=== PATIENT | female | born 1975 | race Caucasian/White ===

== ENCOUNTER 2020-06-07 11:27 | Emergency (ER) | payer OTHER, SELFPAY ==
--- NOTE | ~2020-06-07 | US_ITS ---
EXAMINATION: US RETROPERITONEAL LIMITED (RENAL ONLY) CLINICAL INFORMATION: Back pain. COMPARISON: None TECHNIQUE: Grayscale and color imaging of the kidneys FINDINGS: RIGHT KIDNEY: 8.8 x 3.4 x 4.5 cm (SAG x AP x TRV). The kidney is normal in size, contour, and echogenicity. Renal cortical thickness is normal. No calculi or focal parenchymal lesions. No hydronephrosis. LEFT KIDNEY: 10.6 x 5.3 x 4 cm (SAG x AP x TRV). The kidney is normal in size, contour, and echogenicity. Renal cortical thickness is normal. No calculi or focal parenchymal lesions. No hydronephrosis. US/US renal BI IMPRESSION: Normal renal ultrasound.
--- NOTE | ~2020-06-07 | XR_ITS ---
EXAMINATION: XR CHEST CLINICAL INFORMATION: Bilateral lower extremity swelling. Negative DVT. COMPARISON: Bilateral leg venous ultrasound 06/07/2020 TECHNIQUE: 2 views of the chest were obtained. FINDINGS: The lungs are clear. The vascularity is normal. There is no vascular congestion, airspace consolidation, or effusion. The heart is normal in size. The hilar and mediastinal contours and bony structures are unremarkable. XR/XR chest 2V IMPRESSION: Unremarkable examination.
--- NOTE | ~2020-06-07 | US_ITS ---
EXAMINATION: US VENOUS ULTRASOUND WITH DOPPLER LOWER EXTREMITY, BILATERAL CLINICAL INFORMATION: Bilateral leg swelling COMPARISON: None TECHNIQUE: Ultrasound of the deep veins is performed from the hip to the calf with compression sonography and color and pulse Doppler assessment. Spectral analysis with color-flow imaging is performed. FINDINGS: RIGHT: There is normal venous compression and respiratory variation and augmented flow. The visualized common femoral vein, superficial femoral vein, profunda femoral vein, popliteal vein, and the trifurcation region shows no evidence of deep venous thrombosis. There is no significant popliteal fossa cyst. LEFT: There is normal venous compression and respiratory variation and augmented flow. The visualized common femoral vein, superficial femoral vein, profunda femoral vein, popliteal vein, and the trifurcation region shows no evidence of deep venous thrombosis. There is no significant popliteal fossa cyst. There is shotty bilateral inguinal lymphadenopathy. US/US venous duplex LE BI IMPRESSION: No DVT demonstrated in the bilateral lower extremity.
[2020-06-07 11:29] VITALS: BP 131/69; PULSE 78; RESP 16; TEMP 36.9; O2SAT 97; BMI 25.6
[2020-06-07 11:54] LABS: Appearance Urine CLEAR; Color Urine STRAW; Glucose Urine UA NEG (NEG); Leukocyte Esterase Urine NEG (NEG); Nitrite Urine NEG (NEG); PH 6.5 (5.0-8.0); Specific Gravity - Urine <= 1.005 (1.005-1.025); Urine Blood 3+ (NEG); Urine Ketones NEG (NEG); Urine Protein NEG (NEG-TRACE)
[2020-06-07 11:55] LABS: UPreg QC Valid YES; Urine Pregnancy NEGATIVE (NEGATIVE)
[2020-06-07 12:03] LABS: Squamous Epithelial Cell Urine 2+ /LPF; WBC Urine 0-2 /HPF (0-4)
--- NOTE | 2020-06-07 13:26 | ECG_ITS ---
Test Reason : FLANK PAIN Blood Pressure : / mmHG Vent. Rate : 066 BPM Atrial Rate : 066 BPM P-R Int : 132 ms QRS Dur : 080 ms QT Int : 442 ms P-R-T Axes : 053 057 023 degrees QTc Int : 463 ms Normal sinus rhythm Normal ECG No previous ECGs available Referred By: America Eldridge Electronically Signed By:Kashif Juarez
--- NOTE | 2020-06-07 13:30 | ED.EXTPRO ---
HPI - Extremity Problem General Chief complaint: Abdominal Pain Stated complaint: kidney pain Time Seen by Provider: 06/07/20 13:20 Source: patient Mode of arrival: ambulatory Limitations: no limitations History of Present Illness HPI Narrative: 44-year-old female with a past medical history of hypothyroidism and past surgical history of an appendectomy presenting to the ED with complaints of bilateral lower extremity swelling for the past 11 days worse todayc associated lower back pain. Reports she just arrived back from [place] after 10 days and she noticed the 1st day after she came off of the plane that she had bilateral feet swelling which has now radiated up to her knees and she feels tightness in her thighs. Reports she is having intermittent bilateral lower back pain and she is concerned that she could possibly be retaining fluid in her kidneys due to she has had some type of kidney infection or problem in the past she is unsure what type of problem it was though. Denies any dizziness, headaches, change in vision, nausea/vomiting, chest pain, shortness of breath, dyspnea on exertion, orthopnea, palpitations, upper extremity swelling, abdominal pain, dysuria, hematuria, inability to urinate, diarrhea or constipation or any other symptoms complaints or concerns at this time. MD Complaint: extremity pain and extremity swelling Onset (ago): day(s) (Eleven days worse today) Pain Consistency: constant Location: left, right and lower extremity Quality: other (Tight sensation) Radiation: proximal Relieving factors: nothing Exacerbating factors: nothing Associated symptoms: other (Bilateral Back pain) Context: recent travel (To [place] by plane just arrived back yesterday ) Related Data Previous Rx's Medication Instructions Recorded cyclobenzaprine 10 mg PO TID PRN #10 tab 06/07/20 furosemide [Lasix] 20 mg PO DAILY 3 Days #3 tab 06/07/20 ibuprofen 800 mg PO Q8H PRN #14 tab 06/07/20 Allergies Allergy/AdvReac Type Severity Reaction Status Date / Time No Known Allergies Allergy Verified 06/07/20 11:37 Review of Systems Review of Systems: Constitutional : No Weight loss, No Fever, No Chills, No Night Sweats, No Fatigue, No Malaise ENT/Mouth : No Hearing loss, No Ear Pain, No Nasal Congestion, No Sinus Pain, No Hoarseness, No sore throat, No Rhinorrhea, No Swallowing Difficulty Eyes: No Eye Pain, No Swelling, No Redness, No Foreign Body, No Discharge, No Vision Changes Cardiovascular : No Chest Pain, No SOB, No Dyspnea on Exertion, No Orthopnea, No Edema, No Palpitations Respiratory : No Cough, No Sputum, No Wheezing, No Smoke Exposure, No Dyspnea Gastrointestinal : No Nausea, No Vomiting, No Diarrhea, No Constipation, No abdominal Pain, No Hematochezia, No Melena Genitourinary : no irregular bleeding, No Dysuria, No Urinary Frequency, No Hematuria, No Urinary Incontinence, No Urgency, No Flank Pain, No Urinary Flow Changes, No Hesitancy Musculoskeletal : + Back pain, + lower extremity edema, + lower leg pain, No joint pain, No Myalgias, No Joint Swelling Skin : No Skin Lesions, No rash Neuro : No Weakness, No Numbness, No Paresthesias, No Loss of Consciousness, No Dizziness, No Headache Psych : No Anxiety/Panic, No Depression, No SI/HI/AH/VH, No Social Issues, Heme/Lymph: No Bruising, No Bleeding,No Lymphadenopathy Endocrine : No Polyuria, No Polydipsia, No Temperature Intolerance Yes all other systems are reviewed and are negative [facility] Past Medical History Attestation statement: The following information was validated with the patient. Medical History Hypothyroid Surgical History History of appendectomy Social History Social History Advance Directives: No Advance Directives Information Provided: No Physical Exam Vital Signs: Vital Signs: Last Vital Signs Temp 98.4 F 06/07/20 14:00 Pulse 64 06/07/20 14:00 Resp 18 06/07/20 14:00 BP 159/93 H 06/07/20 14:00 Pulse Ox 96 06/07/20 14:00 Body Mass Index 25.6 vital signs have been reviewed as normal and appeared to be correct. Blood pressure normal. Heart rate normal. Respiration rate normal. Temperature normal. Oxygen saturation normal. Appearance: Alert. Oriented X3. No acute distress. Head: Normal external exam. Normocephalic. Eyes: PERRLA. EOMI. Conjunctiva and sclera normal. Eyelids normal. ENT: Pharynx normal. Uvula midline. Moist mucous membranes. Neck: Normal inspection. Neck supple. FROM. No adenopathy. No meningeal signs. CVS: Normal heart rate and rhythm. Heart sound normal. No murmurs noted. Pulses normal throughout. Respiratory: No respiratory distress. Painless inspiration. Breath sounds normal. No wheezes/rales/rhonchi noted. Chest nontender. No accessory muscle usage noted or decreased air movement noted. Abdomen: Soft and nontender. Nondistended. No guarding. No rigidity. Bowel sounds normal in all 4 quadrants. No distention noted. No organomegaly noted. No visible injury noted. No rebound tenderness. Negative Rovsing sign. Negative obturator's sign. Negative psoas sign. Negative Witt sign. Back: No CVA tenderness. Full range of motion noted. Skin: Skin warm and dry. Normal skin color. Normal skin turgor. No rashes/lesions/lacerations noted. Extremities: Patient with bilateral lower extremity pitting edema +2. No signs of infection. Positive distal pedal pulses. Otherwise all other Extremities exhibit normal range of motion and nontender. Neuro: Oriented X 3. No motor deficit. No sensory deficit. Reflexes normal. Course Course Course Narrative: 13:30pm 44-year-old female with a past medical history of hypothyroidism and past surgical history of an appendectomy presenting to the ED with complaints of bilateral lower extremity swelling for the past 11 days worse todayc associated lower back pain. - On exam patient is alert and oriented x3. Not in any acute distress. Vital signs are stable within normal limits. Nontoxic appearing. Patient does not have any abdominal tenderness her abdomen is soft and nontender. Nondistended. Negative CVA tenderness bilaterally. Patient with +2 pitting edema to lower extremity with positive distal pedal pulses. - Plan: Labs, CXR, EKG, Kidney US and B/L LE Venous US's then re-evaluate. Reevaluation(s) Reevaluation #1: - patient mild elevation in AST/ALT at 43 and 53 - C reactive protein 0.64 - BNP 131 - all other labs within normal limits. UA within normal limits no evidence of UTI or protein noted. - EKG normal sinus rhythm no acute ischemic changes noted. - chest x-ray within normal limits no acute processes noted. - bilateral lower extremity venous Doppler ultrasounds within normal limits no acute processes such as DVT or any other acute processes noted. - bilateral renal ultrasound revealed normal renal ultrasound no acute processes noted. - I discussed this case with Dr. Jang and she recommended placing the patient on Lasix to give a dose here and give her a prescription for 3 days and instructed patient to follow-up with her primary care provider for further evaluation and treatment. Therefore explained this to the patient and she understands that we will be sending her home with Lasix for retaining fluid/pedal edema instructions follow-up with primary care provider this week. Patient understands agrees with this plan. Time: 16:07 MDM - Extremity (Nontraumatic) Medical Records Attestation: I reviewed the patient's medical records. Lab Data Attestation: I reviewed the patient's lab results. Result diagrams: 06/07/20 14:55 06/07/20 14:55 Labs: Lab Results 06/07/20 06/07/20 06/07/20 Range/Units 11:44 14:55 14:55 WBC 7.4 (4.8-10.8) X10*3/uL RBC 3.91 L (4.20-5.50) X10*6/uL Hgb 11.8 L (12.0-16.0) g/dl Hct 35.1 L (37-47) % MCV 89.8 (80-98) fL MCH 30.2 (27.0-33.0) pg MCHC 33.6 (31.0-35.0) g/dl RDW 12.4 (11.0-16.0) % Plt Count 274 (160-400) X10*3/uL MPV 9.5 (9.4-12.3) fL Immature Gran % (Auto) 0.3 (0.0-0.4) % Neut % (Auto) 72.7 (45-73) % Lymph % (Auto) 18.4 L (20-40) % [place] % (Auto) 6.9 (2-11) % Eos % (Auto) 0.8 (0-4) % Baso % (Auto) 0.9 (0-2) % Lymph # (Auto) 1.4 (1.2-4.9) X10*3/uL [place] # (Auto) 0.5 (0.1-1.2) X10*3/uL Eos # (Auto) 0.1 (0.0-0.4) X10*3/uL Baso # (Auto) 0.1 (0.0-0.2) X10*3/uL Abs Immat Gran (auto) 0.02 (0.00-0.03) X10*3/uL Absolute Neuts (auto) 5.4 (2.0-8.3) X10*3/uL Absolute Nucleated RBC 0.000 (0.0-0.012) X10*3/uL Nucleated RBC % (auto) 0.0 (0.0-0.2) /100WBC PT 11.8 (10.8-13.0) SEC INR 1.0 (0.9-1.1) Sodium (135-145) mmol/L Potassium (3.3-5.1) mmol/L Chloride (96-108) mmol/L Carbon Dioxide (22-29) mmol/L Anion Gap (12-20) BUN (9-16) mg/dL Creatinine (0.5-1.4) mg/dL Estim Creat Clear Calc Estimated GFR Random Glucose (60-115) mg/dL Calcium (8.4-10.2) mg/dL Magnesium (1.6-2.6) mg/dL Total Bilirubin (0.0-1.0) mg/dL Direct Bilirubin (0.0-0.5) mg/dL AST (5-31) U/L ALT (0-31) U/L Alkaline Phosphatase (39-117) U/L Total Creatine Kinase (26-140) U/L Troponin I High Sens (<3.5-17.0) ng/L C-Reactive Protein (< or = 0.50) mg/dL B-Natriuretic Peptide (<100) pg/mL Total Protein (6.5-8.0) g/dL Albumin (3.5-5.0) g/dL TSH (0.32-4.0) uIU/mL Beta HCG, Quant mIU/mL Urine Color STRAW Urine Appearance CLEAR Urine pH 6.5 (5.0-8.0) Ur Specific [place] <= 1.005 (1.005-1.025) Urine Protein NEG (NEG-TRACE) MG/DL Urine Glucose (UA) NEG (NEG) MG/DL Urine Ketones NEG (NEG) MG/DL Urine Blood 3+ H (NEG) Urine Nitrite NEG (NEG) Ur Leukocyte Esterase NEG (NEG) Urine RBC 1-4 (0) /HPF Urine WBC 0-2 (0-4) /HPF Ur Squamous Epith Cells 2+ /LPF Urine Bacteria NONE /LPF Urine Test NEGATIVE (NEGATIVE) 06/07/20 06/07/20 Range/Units 14:55 14:55 WBC (4.8-10.8) X10*3/uL RBC (4.20-5.50) X10*6/uL Hgb (12.0-16.0) g/dl Hct (37-47) % MCV (80-98) fL MCH (27.0-33.0) pg MCHC (31.0-35.0) g/dl RDW (11.0-16.0) % Plt Count (160-400) X10*3/uL MPV (9.4-12.3) fL Immature Gran % (Auto) (0.0-0.4) % Neut % (Auto) (45-73) % Lymph % (Auto) (20-40) % [place] % (Auto) (2-11) % Eos % (Auto) (0-4) % Baso % (Auto) (0-2) % Lymph # (Auto) (1.2-4.9) X10*3/uL [place] # (Auto) (0.1-1.2) X10*3/uL Eos # (Auto) (0.0-0.4) X10*3/uL Baso # (Auto) (0.0-0.2) X10*3/uL Abs Immat Gran (auto) (0.00-0.03) X10*3/uL Absolute Neuts (auto) (2.0-8.3) X10*3/uL Absolute Nucleated RBC (0.0-0.012) X10*3/uL Nucleated RBC % (auto) (0.0-0.2) /100WBC PT (10.8-13.0) SEC INR (0.9-1.1) Sodium 140 (135-145) mmol/L Potassium 3.9 (3.3-5.1) mmol/L Chloride 108 (96-108) mmol/L Carbon Dioxide 24 (22-29) mmol/L Anion Gap 12 (12-20) BUN 15 (9-16) mg/dL Creatinine 0.76 (0.5-1.4) mg/dL Estim Creat Clear Calc 81.8 Estimated GFR > 60 Random Glucose 86 (60-115) mg/dL Calcium 8.9 (8.4-10.2) mg/dL Magnesium 2.1 (1.6-2.6) mg/dL Total Bilirubin 0.9 (0.0-1.0) mg/dL Direct Bilirubin 0.3 (0.0-0.5) mg/dL AST 43 H (5-31) U/L ALT 53 H (0-31) U/L Alkaline Phosphatase 72 (39-117) U/L Total Creatine Kinase 106 (26-140) U/L Troponin I High Sens < 3.5 (<3.5-17.0) ng/L C-Reactive Protein 0.64 H (< or = 0.50) mg/dL B-Natriuretic Peptide 131 H (<100) pg/mL Total Protein 6.7 (6.5-8.0) g/dL Albumin 4.1 (3.5-5.0) g/dL TSH 2.65 (0.32-4.0) uIU/mL Beta HCG, Quant < 2 mIU/mL Urine Color Urine Appearance Urine pH (5.0-8.0) Ur Specific [place] (1.005-1.025) Urine Protein (NEG-TRACE) MG/DL Urine Glucose (UA) (NEG) MG/DL Urine Ketones (NEG) MG/DL Urine Blood (NEG) Urine Nitrite (NEG) Ur Leukocyte Esterase (NEG) Urine RBC (0) /HPF Urine WBC (0-4) /HPF Ur Squamous Epith Cells /LPF Urine Bacteria /LPF Urine Test (NEGATIVE) Imaging Data Chest x-ray: Attestation: I personally reviewed and interpreted this imaging study as follows: Radiologist's impression: FINDINGS: The lungs are clear. The vascularity is normal. There is no vascular congestion, airspace consolidation, or effusion. The heart is normal in size. The hilar and mediastinal contours and bony structures are unremarkable. XR/XR chest 2V IMPRESSION: Unremarkable examination. Venous bilateral lower duplex ultrasounds: Attestation: I personally reviewed and interpreted this imaging study as follows: Radiologist's impression: RIGHT: There is normal venous compression and respiratory variation and augmented flow. The visualized common femoral vein, superficial femoral vein, profunda femoral vein, popliteal vein, and the trifurcation region shows no evidence of deep venous thrombosis. There is no significant popliteal fossa cyst. LEFT: There is normal venous compression and respiratory variation and augmented flow. The visualized common femoral vein, superficial femoral vein, profunda femoral vein, popliteal vein, and the trifurcation region shows no evidence of deep venous thrombosis. There is no significant popliteal fossa cyst. There is shotty bilateral inguinal lymphadenopathy. US/US venous duplex LE BI IMPRESSION: No DVT demonstrated in the bilateral lower extremity. Kidney ultrasound: Attestation: I personally reviewed and interpreted this imaging study as follows: Radiologist's impression: FINDINGS: RIGHT KIDNEY: 8.8 x 3.4 x 4.5 cm (SAG x AP x TRV). The kidney is normal in size, contour, and echogenicity. Renal cortical thickness is normal. No calculi or focal parenchymal lesions. No hydronephrosis. LEFT KIDNEY: 10.6 x 5.3 x 4 cm (SAG x AP x TRV). The kidney is normal in size, contour, and echogenicity. Renal cortical thickness is normal. No calculi or focal parenchymal lesions. No hydronephrosis. US/US renal BI IMPRESSION: Normal renal ultrasound. ECG Data Attestation EKG: I personally reviewed and interpreted this ECG as follows: ECG interpretation date: 06/07/20 ECG interpretation time: 13:36 Interpretation: Normal sinus rhythm with ventricular rate of 66 with a normal OK interval normal QRS duration normal QT/QTC interval. No acute ischemic changes. No prior EKG to compare to at this time. Discharge Plan Discharge Clinical Impression: Back muscle spasm, Retaining fluid Patient Disposition: Home, Self-Care Instructions: Leg Edema (ED), Muscle Spasm (ED) Prescriptions: New furosemide [Lasix] 20 mg tablet 20 mg PO DAILY 3 Days Qty: 3 RF: 0 cyclobenzaprine 10 mg tablet 10 mg PO TID PRN (Reason: muscle spasm) Qty: 10 RF: 0 ibuprofen 800 mg tablet 800 mg PO Q8H PRN (Reason: pain) Qty: 14 RF: 0 Referrals: Emerald Lyn PA [Primary Care Provider] - 1 day (Call today or tomorrow to make an appointment by this week) Stand Alone Forms: Work/School Release
[2020-06-07 14:00] VITALS: BP 159/93; PULSE 64; RESP 18; TEMP 36.9; O2SAT 96
[2020-06-07 15:05] LABS: MANUAL DIFF FLAG NO
[2020-06-07 15:10] LABS: Basophils Absolute Auto 0.1 X10*3/uL (0.0-0.2); Basophils Percent Auto 0.9 % (0-2); Eosinophils Absolute Auto 0.1 X10*3/uL (0.0-0.4); Eosinophils Percent Auto 0.8 % (0-4); Hematocrit 35.1 % (37-47); Hemoglobin 11.8 g/dl (12.0-16.0); Imm Gran Abs Auto 0.02 X10*3/uL (0.00-0.03); Imm Gran Pct Auto 0.3 % (0.0-0.4); Lymphocytes Absolute Auto 1.4 X10*3/uL (1.2-4.9); Lymphocytes Percent Auto 18.4 % (20-40); Mean Corpuscular HGB Conc 33.6 g/dl (31.0-35.0); Mean Corpuscular Hemoglobin 30.2 pg (27.0-33.0); Mean Corpuscular Volume 89.8 fL (80-98); Mean Platelet Volume 9.5 fL (9.4-12.3); Monocytes Absolute Auto 0.5 X10*3/uL (0.1-1.2); Monocytes Percent Auto 6.9 % (2-11); Neutrophils Absolute Auto 5.4 X10*3/uL (2.0-8.3); Neutrophils Percent Auto 72.7 % (45-73); Platelet Count 274 X10*3/uL (160-400); Red Blood Count 3.91 X10*6/uL (4.20-5.50); Red Cell Distribution Width 12.4 % (11.0-16.0); White Blood Count 7.4 X10*3/uL (4.8-10.8)
[2020-06-07 15:22] LABS: Prothrombin Time 11.8 SEC (10.8-13.0)
[2020-06-07 15:32] LABS: Alanine Aminotransferase 53 U/L (0-31); Albumin Level 4.1 g/dL (3.5-5.0); Alkaline Phosphatase 72 U/L (39-117); Anion Gap 12 (12-20); Aspartate Amino Transferase 43 U/L (5-31); Bilirubin Direct 0.3 mg/dL (0.0-0.5); Bilirubin Total 0.9 mg/dL (0.0-1.0); Blood Urea Nitrogen 15 mg/dL (9-16); C Reactive Protein 0.64 mg/dL (< or = 0.50); Calcium 8.9 mg/dL (8.4-10.2); Carbon Dioxide 24 mmol/L (22-29); Chloride 108 mmol/L (96-108); Creatinine Clr Calc Pharmacy 81.8; Estimated Glomerular Filt Rate > 60; Glucose Random 86 mg/dL (60-115); Magnesium 2.1 mg/dL (1.6-2.6); Potassium 3.9 mmol/L (3.3-5.1); Sodium 140 mmol/L (135-145); Total Protein 6.7 g/dL (6.5-8.0)
[2020-06-07 15:36] LABS: B Type Natriuretic Peptide 131 pg/mL (<100); Troponin-I High Sensitivity < 3.5 ng/L (<3.5-17.0)
[2020-06-07 15:53] LABS: HCG Quantitative < 2 mIU/mL; Thyroid Stimulating Hormone 2.65 uIU/mL (0.32-4.0)
[2020-06-07] MEDS: Furosemide 20 MG TABLET PO (15:58)
[2020-06-07 16:04] LABS: Erythrocyte Sedimentation Rate 6 MM/HR (0-20)
== END 2020-06-07 16:29 | disposition home or self-care (01) ==
PROVIDERS: Physician Assistant Medical; Emergency Provider Emergency Medicine; PCP Physician Assistant
DX: M62.830 Muscle spasm of back (principal); R60.0 Localized edema; M79.662 Pain in left lower leg; M79.661 Pain in right lower leg
CPT/HCPCS: 36415; 71046; 76775; 80048; 80076; 81001; 81025; 82550; 83735; 83880; 84443; 84484; 84702; 85025; 85610; 85652; 86140; 93005; 93970; 99283; 99284